=== PATIENT | male | born 1945 | race Caucasian/White ===

== ENCOUNTER 2018-06-08 07:46 | Day surgery (SDC) | payer BC ==
[2018-06-08] VITALS (21 sets, daily range): BP systolic 99–147; BP diastolic 48–69; PULSE 63–83; RESP 10–22; Ht 167.6 cm; Wt 84.9 kg
[~2018-06-08] VITALS: Ht 167.6 cm; Wt 84.9 kg
[~2018-06-08 07:46] MED LIST: CEFAZOLIN 1 GM INJ ONE; LIDOCAINE 2% (SDV) 5 ML INJ ONE; PROPOFOL 200 MG INJ ONE
--- NOTE | 2018-06-08 08:07 | HPN ---
Date/Time of Note Date/Time of Note DATE: 06/08/18 TIME: 08:07 Interval H&P Admission Note Pt. seen H&P reviewed: No system changes FREDDIE REEDER MD Jun 08, 2018 08:07
[2018-06-08] MEDS ORDERED: AZEL137S9 NASAL (08:31)
[2018-06-08] MEDS ORDERED: EPIN0.3P4 IM (08:34)
[2018-06-08] MEDS ORDERED: CARV25TA97 PO (08:34)
[2018-06-08] MEDS ORDERED: RANI150T5 PO (08:34)
[2018-06-08] MEDS ORDERED: ADV50050 INHALATION (08:34)
[2018-06-08] MEDS ORDERED: MONT10TA21 PO (08:34)
[2018-06-08] MEDS ORDERED: CALC0.255 PO (08:34)
[2018-06-08] MEDS ORDERED: ALLO100T PO (08:34)
[2018-06-08] MEDS ORDERED: NIFE60TA36 PO (08:34)
[2018-06-08] MEDS ORDERED: TAMS-14 PO (08:36)
[2018-06-08] MEDS ORDERED: OMEG1CAP17 PO (08:36)
[2018-06-08] MEDS ORDERED: GABA300C16 PO (08:38)
[2018-06-08] MEDS ORDERED: ATOR-2 PO (08:38)
[2018-06-08] MEDS ORDERED: ISOS10TA2 PO (08:41)
[2018-06-08] MEDS ORDERED: ALBU2.5V3 NEB (08:41)
[2018-06-08] MEDS ORDERED: DOCU-159 PO (08:41)
[2018-06-08] MEDS ORDERED: ACET-141 PO (08:41)
[2018-06-08] MEDS ORDERED: ALBU8.5H8 INH (08:41)
[2018-06-08] MEDS ORDERED: LIDOCAINE 1% (MPF) 30 ML INJ ONE (09:54)
[2018-06-08] MEDS ORDERED: GELATIN SIZE 100 SPONGE ONE (09:54)
[2018-06-08] MEDS ORDERED: THROMBIN (BOVINE) 5,000 UNIT VIAL TP ONE (09:54)
[2018-06-08] MEDS ORDERED: HEPARIN 1000 UNITS/ML 10 ML INJ ONE (09:56)
--- NOTE | 2018-06-08 10:03 | PREAC ---
Date/Time of Note Date/Time of Note DATE: 06/08/18 TIME: 10:02 Anesthesia Eval and Record Evaluation Time Pre-Procedure Interview DATE: 06/08/18 TIME: 10:02 Age 72 Sex male NPO: 8 hrs Preoperative diagnosis ESRD Planned procedure L AV fistula creation Past Medical History Past Medical History: Includes Cardio: HTN, Dyslipidemia, CAD Endo: Diabetes Pulm: Smoking Hx, COPD Neuro: CVA Musculoskeletal: Osteoarthritis Renal: ESRD on dialysis GI: GERD, Obesity Heme: Anemia Surgery & Anesthesia Issues No known issue Meds Anticoagulation: No Beta Adriana within 24 hr: No Reason Beta Adriana not given: Pt. not on B-Adriana Reported Medications Acetaminophen* (Acetaminophen*) 500 MG Extra Strength Tablet, 500 MG PO Q6H PRN for PAIN AND OR ELEVATED TEMP, TAB 06/08/18 Isosorbide Dinitrate* (Isordil*) 10 Mg Tablet, 10 MG PO TID, TAB 06/08/18 Albuterol Sulfate* (Proair HFA*) 8.5 Gm Hfa.aer.ad, 2 PUFF INH Q4H PRN for WHEEZING AND SOB, #1 INHALER 06/08/18 Albuterol Sulfate* (Albuterol Sulfate* Neb) 0.083%-3 Ml Neb, 2.5 MG NEB Q4H, #30 VIAL 06/08/18 Docusate Sodium* (Docusate Sodium*) 100 Mg Capsule, 200 MG PO HS, #30 CAP 06/08/18 Gabapentin* (Gabapentin*) 300 Mg Capsule, 900 MG PO HS, #60 CAP 06/08/18 Atorvastatin* (Atorvastatin*) 80 Mg Tablet, 80 MG PO QHS, #30 TAB 06/08/18 [place]-3 Fatty Acids/Fish Oil (Fish Oil 1,000 mg Softgel) 1 Each Capsule, 1 CAP PO DAILY, CAP 06/08/18 Tamsulosin Hcl* (Flomax*) 0.4 Mg Cap.er.24h, 0.4 MG PO DAILY, CAP 06/08/18 Salmeterol Xinaf-Fluticasone* (Advair*) 500/50 Diskus Inhaler, 1 INH INHALATION BID, #1 INHALER 06/08/18 Ranitidine Hcl* (Ranitidine Hcl*) 150 Mg Tablet, 150 MG PO Q12, #60 TAB 06/08/18 Nifedipine* (Adalat CC*) 60 Mg Tablet.sa, 60 MG PO BID, #30 TAB.SA 06/08/18 Calcitriol* (Rocaltrol*) 0.25 Mcg Capsule, 0.25 MCG PO DAILY, CAP 06/08/18 Montelukast Sodium* (Singulair*) 10 Mg Tablet, 10 MG PO DAILY, #30 TAB 06/08/18 Carvedilol* (Coreg*) 25 Mg Tablet, 25 MG PO BID, #60 TAB 06/08/18 Allopurinol* (Allopurinol*) 100 Mg Tablet, 100 MG PO BID, TAB 06/08/18 Epinephrine (Epipen 2-Wilbert) 0.3 Mg/0.3 Ml Pen.injctr, 0.3 MG IM DIRECTED PRN for ALLERGIC REACTION, #1 EA 06/08/18 Azelastine Hcl* (Azelastine Hcl*) 137 Mcg/0.137 Ml [place].pump, 2 SPRAYS NASAL DAILY PRN for ALLERGIC REACTION, #1 EA TO EACH NOSTRIL 06/08/18 Meds reviewed: Yes Allergies Coded Allergies: STEVAN Inhibitors (Verified Allergy, Unknown, 06/08/18) baclofen (Verified Allergy, Unknown, 06/08/18) oxycodone (Verified Allergy, Unknown, 06/08/18) Allergies Reviewed: Yes Labs/Studies Labs Reviewed: Reviewed by anesthesiologist Result Diagram: 06/08/18 0850 06/08/18 0850 Laboratory Tests 06/08/18 08:50 test: N/A Studies: ECG Pre-procedure Exam Last vitals Vital Signs Date Temp Pulse Resp B/P (MAP) Pulse Ox O2 O2 Flow FiO2 Time Delivery Rate 06/08/18 97.9 63 16 99/57 (71) 99 09:27 Airway: Adequate mouth opening, Adequate thyromental dist Mallampati: Mallampati II Teeth: Normal Lung: Normal Heart: Normal ASA Physical Status ASA physical status: 3 Emergency: None Planned Anesthetic General/MAC: Mask, ETT, MAC Nerve block: Brachial plexus (left) Pre-operative Attestations Prior to commencing anesthesia and surgery, the patient was re-evaluated, there was verification of: *The patient's identity *The results of appropriate recent lab work and preoperative vital signs *The above evaluation not changing prior to induction *Anesthetic plan, risk benefits, alternative and complications discussed with patient/family; questions answered; patient/family understands, accepts and wishes to proceed. BRETT BOLANOS Jun 08, 2018 10:03
[2018-06-08] MEDS ORDERED: HEPARIN 1000 UNITS/ML 10 ML INJ IRR ONE (10:10)
[2018-06-08] MEDS ORDERED: MIDAZOLAM 1 MG/ML 2 ML INJ ONE (10:29)
[2018-06-08] MEDS ORDERED: ROPIVACAINE 0.5 % 30 ML VIAL ONE (10:29)
[2018-06-08] MEDS ORDERED: FENTAnyl 50 MCG/ML VIAL IV PRN ×2 (10:30)
[2018-06-08] MEDS ORDERED: ONDANSETRON 4 MG INJ IV PRN (10:30)
[2018-06-08] MEDS ORDERED: DIPHENHYDRAMINE 50 MG INJ IV PRN (10:30)
[2018-06-08] MEDS ORDERED: HYDROmorphONE 1 MG/5 ML IV SYRINGE IV PRN ×2 (10:30)
[2018-06-08] MEDS ORDERED: ALBUTEROL 0.083% (NEB) 2.5 MG/3 ML AMP HHN PRN (10:30)
[2018-06-08] MEDS ORDERED: METOCLOPRAMIDE 10 MG INJ IV PRN (10:30)
[2018-06-08] MEDS ORDERED: LIDOCAINE 1% (MPF) 30 ML INJ INJ ONE (10:50)
--- NOTE | 2018-06-08 11:32 | SIPON ---
Date/Time of Note Date/Time of Note DATE: 06/08/18 TIME: 11:31 Operative Report Preoperative Diagnosis ESRD Postoperative Diagnosis same Operation/Procedure Performed L arm brachiobasilic AVF creation - 1st stage Surgeon see signature line pediatric physician assistant none Anesthesia: other Estimated blood loss: 0 - 10 ml's Transfusion Required none Specimen none Grafts/Implants none Complications none FREDDIE REEDER MD Jun 08, 2018 11:32
--- NOTE | 2018-06-08 12:26 | PAC ---
Date/Time of Note Date/Time of Note DATE: 06/08/18 TIME: 12:26 Post-Anesthesia Notes Post-Anesthesia Note Last documented vital signs Vital Signs Date Temp Pulse Resp B/P (MAP) Pulse Ox O2 O2 Flow FiO2 Time Delivery Rate 06/08/18 64 11 128/60 96 Room Air 11:54 (82) 06/08/18 98.0 11:43 Activity: WNL Respiratory function: WNL Cardiovascular function: WNL Mental status: Baseline Pain reasonably controlled: Yes Hydration appropriate: Yes Nausea/Vomiting absent: Yes BRETT BOLANOS Jun 08, 2018 12:26
--- NOTE | 2018-06-08 12:36 | OPR ---
DATE OF OPERATION: 06/08/2018 PREOPERATIVE DIAGNOSIS: End-stage renal disease. POSTOPERATIVE DIAGNOSIS: End-stage renal disease. PROCEDURE PERFORMED: Creation of left arm brachiobasilic AV fistula as a first stage. SURGEON: Freddie Downing MD ANESTHESIA: Scalene block. ESTIMATED BLOOD LOSS: Minimal. COMPLICATIONS: There are no intraprocedural complications. INDICATIONS: This is a 72-year-old diabetic, hypertensive gentleman with end- stage renal disease on hemodialysis via right IJ PermCath. He is right-handed. I mapped his left arm. His left arm cephalic vein is sclerotic. The left upper arm basilic vein has good caliber and patent all the way up to the shoulders. It was an excellent looking vein, so he decided to go with the brachiobasilic fistula. DESCRIPTION OF PROCEDURE: I marked the vein and the artery on the skin right at the elbow. Once the induction of anesthesia and left arm was prepped and draped in the usual sterile fashion, I made an incision across the antecubital crease right over the basilic vein. I dissected out the basilic vein down to the forearm where it divided into 3 branches. I ligated those with surgical clips and divided it. I cut the septum between the 3 branches creating a dominguez at the end of the vein. I then cut the connective tissue layer overlying the brachial artery pulse. I dissected out several centimeter segment of brachial artery pulse. I clamped it proximally and distally. I made an 8 mm long anterior arteriotomy. I then spatulated the end of the vein to fit the arteriotomy and anastomosed the lower end of the vein to the side of the artery using 6-0 Prolene suture in a running standard vascular surgical fashion. I removed the clamps. There was good thrill, I put a couple of repair sutures just because the vein was little bigger than the artery and there was good hemostasis. I closed the skin incision in 2 layers using an inner layer of 3-0 Vicryl and an outer layer of 4-0 Monocryl subcuticular suture. Sterile dressing was applied. The patient was transferred to recovery room in stable condition. He tolerated the procedure well without any complications. Dictated By: FREDDIE STREETER/BRITTANY Conf#: [id number] DID#: [id number] CC: ASHLEY CISNEROS MD;*EndCC* MTDD
--- NOTE | 2018-06-08 14:11 | RADRPT ---
Vent Rate: 65 bpm RR Interval: 0 msec NV Interval: 146 msec QRS Duration: 84 msec QT Interval: 420 msec QTC Interval: 436 msec P-R-T [place]: 20 - 19 - 78 degrees Normal sinus rhythm Septal infarct , age undetermined Abnormal ECG Electronically Signed By: Pool Morse
== END 2018-06-08 15:40 | disposition home or self-care (01) ==
LOC: SDS 07:46
PROVIDERS: ATTEND Surgery Vascular Surgery
DX: I12.0 Hypertensive chronic kidney disease with stage 5 chronic kidney disease or end stage renal disease (principal); N18.6 End stage renal disease; E78.5 Hyperlipidemia, unspecified; E11.9 Type 2 diabetes mellitus without complications; I25.10 Atherosclerotic heart disease of native coronary artery without angina pectoris; Z86.73 Personal history of transient ischemic attack (TIA), and cerebral infarction without residual deficits; J44.9 Chronic obstructive pulmonary disease, unspecified
CPT/HCPCS: 36821; 71045; 80053; 82962; 85025; 85610; 85730; 93005; J0690; J1644; J2250; J2795

== ENCOUNTER 2018-09-21 05:47 | Day surgery (SDC) | payer BC ==
[2018-09-21] VITALS (11 sets, daily range): BP systolic 91–152; BP diastolic 53–70; PULSE 62–68; RESP 12–18; Ht 165.1 cm; Wt 78.0 kg
[~2018-09-21] VITALS: Ht 165.1 cm; Wt 78.0 kg
[~2018-09-21 05:47] MED LIST changes: +ACET-141 PO; +ADV50050 INHALATION; +ALBU2.5V3 NEB; +ALBU8.5H8 INH; +ALLO100T PO; +ATOR-2 PO; +AZEL137S9 NASAL; +CALC0.255 PO; +CARV25TA97 PO; -CEFAZOLIN 1 GM INJ ONE; +DOCU-159 PO; +EPIN0.3P4 IM; +GABA300C16 PO; +ISOS10TA2 PO; -LIDOCAINE 2% (SDV) 5 ML INJ ONE; +MONT10TA21 PO; +NIFE60TA36 PO; +OMEG1CAP17 PO; -PROPOFOL 200 MG INJ ONE; +RANI150T5 PO; +TAMS-14 PO
--- NOTE | 2018-09-21 07:11 | HPN ---
Date/Time of Note Date/Time of Note DATE: 09/21/18 TIME: 07:11 Interval H&P Admission Note Pt. seen H&P reviewed: No system changes FREDDIE REEDER MD Sep 21, 2018 07:11
[2018-09-21] MEDS ORDERED: LIDOCAINE 1% (MPF) 30 ML INJ ONE (07:21)
[2018-09-21] MEDS ORDERED: THROMBIN (BOVINE) 5,000 UNIT VIAL TP ONE (07:21)
[2018-09-21] MEDS ORDERED: GELATIN SIZE 100 SPONGE ONE (07:21)
[2018-09-21] MEDS ORDERED: HEPARIN 1000 UNITS/ML 10 ML INJ ONE (07:22)
--- NOTE | 2018-09-21 07:48 | PREAC ---
Date/Time of Note Date/Time of Note DATE: 09/21/18 TIME: 07:46 Anesthesia Eval and Record Evaluation Time Pre-Procedure Interview DATE: 09/21/18 TIME: 07:46 Age 73 Sex male NPO: 8 hrs Preoperative diagnosis ESRD Planned procedure left av fistula revision Past Medical History Past Medical History: Includes Cardio: HTN Endo: Diabetes Renal: ESRD on dialysis () Surgery & Anesthesia Issues No known issue Meds Anticoagulation: No Beta Adriana within 24 hr: Yes Reported Medications Acetaminophen* (Acetaminophen*) 500 MG Extra Strength Tablet, 500 MG PO Q6H PRN for PAIN AND OR ELEVATED TEMP, TAB 06/08/18 Isosorbide Dinitrate* (Isordil*) 10 Mg Tablet, 10 MG PO TID, TAB 06/08/18 Albuterol Sulfate* (Proair HFA*) 8.5 Gm Hfa.aer.ad, 2 PUFF INH Q4H PRN for WHEEZING AND SOB, #1 INHALER 06/08/18 Albuterol Sulfate* (Albuterol Sulfate* Neb) 0.083%-3 Ml Neb, 2.5 MG NEB Q4H, #30 VIAL 06/08/18 Docusate Sodium* (Docusate Sodium*) 100 Mg Capsule, 200 MG PO HS, #30 CAP 06/08/18 Gabapentin* (Gabapentin*) 300 Mg Capsule, 900 MG PO HS, #60 CAP 06/08/18 Atorvastatin* (Atorvastatin*) 80 Mg Tablet, 80 MG PO QHS, #30 TAB 06/08/18 [place]-3 Fatty Acids/Fish Oil (Fish Oil 1,000 mg Softgel) 1 Each Capsule, 1 CAP PO DAILY, CAP 06/08/18 Tamsulosin Hcl* (Flomax*) 0.4 Mg Cap.er.24h, 0.4 MG PO DAILY, CAP 06/08/18 Salmeterol Xinaf-Fluticasone* (Advair*) 500/50 Diskus Inhaler, 1 INH INHALATION BID, #1 INHALER 06/08/18 Ranitidine Hcl* (Ranitidine Hcl*) 150 Mg Tablet, 150 MG PO Q12, #60 TAB 06/08/18 Nifedipine* (Adalat CC*) 60 Mg Tablet.sa, 60 MG PO BID, #30 TAB.SA 06/08/18 Calcitriol* (Rocaltrol*) 0.25 Mcg Capsule, 0.25 MCG PO DAILY, CAP 06/08/18 Montelukast Sodium* (Singulair*) 10 Mg Tablet, 10 MG PO DAILY, #30 TAB 06/08/18 Carvedilol* (Coreg*) 25 Mg Tablet, 25 MG PO BID, #60 TAB 06/08/18 Allopurinol* (Allopurinol*) 100 Mg Tablet, 100 MG PO BID, TAB 06/08/18 Epinephrine (Epipen 2-Wilbert) 0.3 Mg/0.3 Ml Pen.injctr, 0.3 MG IM DIRECTED PRN for ALLERGIC REACTION, #1 EA 06/08/18 Azelastine Hcl* (Azelastine Hcl*) 137 Mcg/0.137 Ml [place].pump, 2 SPRAYS NASAL DAILY PRN for ALLERGIC REACTION, #1 EA TO EACH NOSTRIL 06/08/18 Meds reviewed: Yes Allergies Coded Allergies: STEVAN Inhibitors (Verified Allergy, Unknown, 06/08/18) baclofen (Verified Allergy, Unknown, 06/08/18) oxycodone (Verified Allergy, Unknown, 06/08/18) Allergies Reviewed: Yes Labs/Studies Labs Reviewed: Reviewed by anesthesiologist Result Diagram: 09/21/18 0700 Laboratory Tests 09/21/18 07:00 test: N/A Studies: ECG (sr), CXR (mild carfiomegally) Pre-procedure Exam Last vitals Vital Signs Date Temp Pulse Resp B/P (MAP) Pulse Ox O2 O2 Flow FiO2 Time Delivery Rate 09/21/18 97.2 68 16 91/53 (66) 98 Room Air 07:25 Airway: Adequate mouth opening Mallampati: Mallampati I Teeth: Normal Lung: Normal Heart: Normal ASA Physical Status ASA physical status: 3 Emergency: None Planned Anesthetic General/MAC: Mask, LMA, TIVA Nerve block: Brachial plexus (left) Planned Pain Management Single shot nerve block, Parenteral pain med Pre-operative Attestations Prior to commencing anesthesia and surgery, the patient was re-evaluated, there was verification of: *The patient's identity *The results of appropriate recent lab work and preoperative vital signs *The above evaluation not changing prior to induction *Anesthetic plan, risk benefits, alternative and complications discussed with patient/family; questions answered; patient/family understands, accepts and wishes to proceed. ALIA LOJA MD Sep 21, 2018 07:48
[2018-09-21] MEDS ORDERED: LIDOCAINE 1% (MPF) 30 ML INJ INJ ONE (07:50)
[2018-09-21] MEDS ORDERED: HEPARIN 1000 UNITS/ML 10 ML INJ IRR ONE (07:50)
[2018-09-21] MEDS ORDERED: CHOL10009 ORAL (07:54)
[2018-09-21] MEDS ORDERED: ASPI1CPM8 PO (07:54)
[2018-09-21] MEDS ORDERED: DOCU-159 PO (07:54)
[2018-09-21] MEDS ORDERED: CALC-12 ORAL (07:54)
[2018-09-21] MEDS ORDERED: ROPIVACAINE 0.2% 20 ML VIAL ONE (07:55)
[2018-09-21] MEDS ORDERED: PROPOFOL 20 ML ONE ×2 (07:55→08:48)
[2018-09-21] MEDS ORDERED: CEFAZOLIN 1 GM INJ ONE (07:55)
[2018-09-21] MEDS ORDERED: MIDAZOLAM 1 MG/ML 2 ML INJ ONE (07:55)
[2018-09-21] MEDS ORDERED: DEXAMETHASONE 4 MG/ML 5 ML INJ ONE (08:19)
[2018-09-21] MEDS ORDERED: DIPHENHYDRAMINE 50 MG INJ ONE (08:19)
[2018-09-21] MEDS ORDERED: FENTAnyl 50 MCG/ML VIAL ONE (08:23)
--- NOTE | 2018-09-21 09:15 | SIPON ---
Date/Time of Note Date/Time of Note DATE: 09/21/18 TIME: 09:14 Operative Report Preoperative Diagnosis ESRD Postoperative Diagnosis same Operation/Procedure Performed L arm basilic vein transposition - 2nd stage superficialization Surgeon see signature line creative assistant none Anesthesia: other Estimated blood loss: 10 - 50 ml's Transfusion Required none Specimen none Grafts/Implants none Complications none FREDDIE REEDER MD Sep 21, 2018 09:15
[2018-09-21] MEDS ORDERED: ONDANSETRON 4 MG INJ IV PRN (10:00)
[2018-09-21] MEDS ORDERED: FENTAnyl 50 MCG/ML VIAL IV PRN ×3 (10:00)
--- NOTE | 2018-09-21 10:50 | OPR ---
DATE OF OPERATION: 09/21/2018 PREOPERATIVE DIAGNOSIS: End-stage renal disease. POSTOPERATIVE DIAGNOSIS: End-stage renal disease. PROCEDURE PERFORMED: Left arm basilic vein transposition second stage procedure. SURGEON: Freddie Downing MD ANESTHESIA: Scalene block. ESTIMATED BLOOD LOSS: Minimal. COMPLICATIONS: No intraprocedural complications. INDICATIONS: This is a 73-year-old gentleman with end-stage renal disease on hemodialysis via Perm-A -Cath. He has a left arm AV fistula is a brachiobasilic fistula. It is well developed. I brought him in today to superficialize it as a second stage procedure. DESCRIPTION OF PROCEDURE: Patient was brought to the operating room and placed on the table in the s upine position. The left arm was prepped and draped in the usual sterile fashion. I made the 3 inci sions beginning at the elbow over the proximal anastomosis and extending up to the axilla with skip i slands in between due to expose the basilic vein from the elbow to the axilla. I ligated all the jair e branches of the vein using either 2-0 or 3-0 silk ties and dividing them. I skeletonized the vein. Once it was completely dissected and branches were all ligated, I then clamped the vein just above the arterial anastomosis at the elbow. I then transected the vein obliquely several centimeters high er. I then tunneled the vein at a very superficial plane going out over the biceps using a long aort ic cross-clamp. I then reanastomosed the 2 ends of the vein using 6-0 Prolene suture in a running st andard vascular surgical fashion. I removed the clamps. There was an excellent thrill in the fistul a. There was good hemostasis. I then closed the skin incision in 2 layers using an inner layer of 3 -0 Vicryl and an outer layer of surgical herman. Sterile dressing was applied. The patient was tra nsferred to recovery room in stable condition. He tolerated the procedure well without any complicat ions. Dictated By: FREDDIE STREETER/BRITTANY Conf#: [id number] DID#: [id number]
--- NOTE | 2018-09-21 11:10 | PAC ---
Date/Time of Note Date/Time of Note DATE: 09/21/18 TIME: 11:07 Post-Anesthesia Notes Post-Anesthesia Note Last documented vital signs Vital Signs Date Temp Pulse Resp B/P (MAP) Pulse Ox O2 O2 Flow FiO2 Time Delivery Rate 09/21/18 98.0 67 16 152/70 95 Room Air 10:16 (97) 09/21/18 2.0 09:42 Activity: WNL Respiratory function: WNL Cardiovascular function: WNL Mental status: Baseline Pain reasonably controlled: Yes Hydration appropriate: Yes Nausea/Vomiting absent: No ALIA LOJA MD Sep 21, 2018 11:10
== END 2018-09-21 10:45 | disposition home or self-care (01) ==
LOC: SDS 05:47
PROVIDERS: ATTEND Surgery Vascular Surgery
DX: I12.0 Hypertensive chronic kidney disease with stage 5 chronic kidney disease or end stage renal disease (principal); N18.6 End stage renal disease; E11.9 Type 2 diabetes mellitus without complications; J45.909 Unspecified asthma, uncomplicated
CPT/HCPCS: 36819; 80053; 82962; 85025; 85610; 85730; J0690; J1100; J1200; J1644; J2250; J2795; J3010